=== PATIENT | male | born 1985 | race Two or more races ===

== ENCOUNTER 2022-02-12 09:59 | Emergency (ER) | payer SELFPAY ==
[~2022-02-12] VITALS: Ht 162.6 cm; Wt 108.9 kg
[2022-02-12 10:09] VITALS: BP 148/92
[2022-02-12 10:32] LABS: BASOPHILS % (AUTO) 0.1 % (0.0-5.0); EOSINOPHILS % (AUTO) 0.7 % (0.0-8.0); HEMATOCRIT 44.1 % (42-54); LYMPHOCYTES % (AUTO) 18.9 % (21.0-51.0); MEAN CORPUSCULAR HEMOGLOBIN 28.4 pg (27.0-33.0); MEAN CORPUSCULAR HGB CONC 34.7 g/dL (32.0-36.0); MEAN CORPUSCULAR VOLUME 81.8 fL (79-99); NEUTROPHILS % (AUTO) 71.1 % (40.0-77.0); PLATELET COUNT (AUTO) 275 K/uL (130-400); RED BLOOD CELL COUNT(AUTO) 5.39 MIL/uL (4.50-6.20); RED CELL DISTRIBUTION WIDTH 12.2 % (11.0-15.5); WHITE BLOOD COUNT (AUTO) 9.1 K/uL (4.8-10.8)
[2022-02-12 10:46] LABS: CREATININE 1.2 mg/dL (0.5-1.5); POTASSIUM 3.7 mmol/L (3.5-5.1)
[2022-02-12 10:50] LABS: ALBUMIN 2.8 g/dL (3.5-5.0)
[2022-02-12 11:23] LABS: APPEARANCE,URINE CLOUDY (CLEAR); BILIRUBIN,URINE 0.5 mg/dL (NEGATIVE); COLOR,URINE YELLOW (YELLOW); GLUCOSE, URINE (UA) 70 mg/dL (NEGATIVE); KETONES,URINE 40 mg/dL (NEGATIVE); LEUKOCYTE ESTERASE ,URINE NEGATIVE Leu/uL (NEGATIVE); NITRATE,URINE NEGATIVE (NEGATIVE); OCCULT BLOOD,URINE MODERATE (NEGATIVE); PROTEIN,URINE 600 mg/dL (NEGATIVE)
[2022-02-12 11:43] LABS: HYALINE CASTS, URINE 26-50 /LPF (0-1 /LPF); MUCUS,URINE FEW LPF (None Seen); SQUAMOUS EPITHELIAL CELL,UR FEW /HPF (0-2)
== END 2022-02-12 15:10 | disposition home or self-care (01) ==
LOC: EDH 09:59
DX: I10 Essential (primary) hypertension (principal); E86.0 Dehydration; E11.9 Type 2 diabetes mellitus without complications
CPT/HCPCS: 36415; 71045; 80053; 81001; 84484; 85025; 87088; 93005